=== PATIENT | male | born 1980 | race Caucasian/White ===

== ENCOUNTER 2020-10-07 10:21 | Emergency (ER) | payer BC, SELFPAY ==
[2020-10-07 10:48] VITALS: BP 144/98; PULSE 81; RESP 18; TEMP 36.7; O2SAT 96; BMI 28.8
--- NOTE | 2020-10-07 11:49 | CT_ITS ---
WS: [id number] CT ABDOMEN PELVIS TECHNIQUE: Noncontrast CT of the abdomen and pelvis with coronal and sagittal reformatted images. CLINICAL INFORMATION: L side/abdominal pain COMPARISON: None. DLP: 1152.[address] scans at [facility] use at least one of these dose optimization techniques: automat ed exposure control; mA and/or kV adjustment per patient size (includes targeted exams where dose is matched to clinical indication); or iterative reconstruction. FINDINGS: 3 mm obstructing left proximal ureteral calculus with slight left ureterectasis. Mild inflammatory st randing and edema about the left kidney with minimal left hydronephrosis. Tiny subcentimeter nonobstr ucting left calyceal tip calculi. No hydronephrosis in right kidney. Right ureter is decompressed. Both adrenal glands are normal. Lung bases are well aerated. Normal noncontrast liver and gallbladder. Normal GE junction. Noncontrast sp cal is normal. Noncontrast pancreas is normal. Prostate calcification. Bladder is decompressed. Normal sigmoid colon. No evidence of small or large bowel obstruction. Lung bases are well aerated. Fat-containing umbilical hernia. CT/CT kidney stone 32011 IMPRESSION: 1. Obstructing 3 mm left proximal ureteral calculus with minimal left hydronep hrosis. Inflammatory stranding and edema about the left kidney. 2. Right kidney is normal.
--- NOTE | 2020-10-07 11:50 | ED_ITS ---
HPI - Abdominal Pain General: Chief Complaint: Urogenital-Male Stated Complaint: Lower back/ ABD Pain, Vomiting Time Seen by Provider: 10/07/20 11:46 Source: patient Mode of arrival: ambulatory Limitations: no limitations History of Present Illness: HPI narrative: Patient is a nice 40-year-old male who presents to ED today with a complaint of left-sided abdominal and flank pain . Patient states 4 days ago he began noticing fairly acute onset left lower abdominal pain and states since then it has moved into his left lower back. He did notice yesterday very dark brown and cloudy urine. He states the pain is so intense that is caused him to feel nauseous and has had 2 episodes of non-bloody emesis today. No fevers. No history of nephro or ureterolithiasis. He is having normal bowel movements. MD elicited complaint: abdominal pain Pertinent past history: none Onset (ago): day(s) Pain Consistency: constant Location: LLQ and L flank Severity: severe Quality: stabbing and sharp Radiation: LLQ and L flank Exacerbating factors: nothing Relieving factors: nothing Associated Symptoms: Reports hematuria, nausea and vomiting (x 2); Denies change in stool character, chills, dysuria, fever(s) and hematemesis Review of Systems Const: Denies: fever(s), chills, body aches, fatigue or malaise Card: Denies: chest pain Resp: Denies: dyspnea GI: Reports: abdominal pain, nausea and vomiting (x 2); Denies: hematemesis or change in stool character : Reports: flank pain and hematuria; Denies: difficulty urinating, dysuria, urinary frequency, urinary urgency, urinary hesitancy or urinary dribbling Musc: Denies: neck pain, extremity pain or joint pain Skin/Breast: Denies: rash Neuro: Denies: headache(s) PFS ED PFSH: Social History Smoking and tobacco status: never smoked Physical Exam Const: COMMON NORMALS: no acute distress, average body habitus, patient oriented x3, no limitations, healthy appearing, alert and well nourished Resp: COMMON NORMALS: normal respiratory effort GI: COMMON NORMALS: Normal to inspection, nondistended, normoactive bowel sounds present, Soft to palpation, No hepatosplenomegaly present and no masses AUSCULTATION: Yes normoactive bowel sounds PALPATION: Yes Soft to palpation, Yes Tenderness to palpation present (GI) (L lower abdomen/pelvis) and Yes No hepatosplenomegaly present : BLADDER/KIDNEY EXAM: Yes CVA tenderness (below L CVA) Back/Pelvis: GENERAL BACK: Yes CVA tenderness (below L CVA) Extremity: COMMON NORMALS: no pedal edema Neuro: COMMON NORMALS: patient oriented x3 SENSORIUM/ORIENTATION: Yes alert Skin: COMMON NORMALS: no rashes or lesions noted GENERAL SKIN EXAM: no rashes or lesions noted Course Vital Signs: Vital signs: Vital Signs Temperature 98.0 F 10/07/20 12:00 Pulse Rate 70 10/07/20 12:00 Respiratory Rate 16 10/07/20 12:01 Blood Pressure 152/95 10/07/20 12:00 Pulse Oximetry 100 10/07/20 12:00 MDM - Abdominal Pain MDM Narrative: Medical decision making narrative: Pain controlled here. No infection. Patient has 3mm L ureter stone. Will DC with urine strainer, pain/nausea meds and flomax and have him follow up with urology. Lab Data: Attestation: I reviewed the patient's lab results. Labs: Lab Results 10/07/20 10/07/20 10/07/20 Range/Units 11:56 11:56 12:10 WBC 8.2 (4.0-10.0) 10^3/ uL RBC 4.95 (4.1-5.3) 10^6/u L Hgb 14.9 (11.7-16.6) g/dL Hct 44.6 (42.0-52.0) % MCV 90.1 (80-94) fL MCH 30.1 (28.0-34.0) pg MCHC 33.4 (30.0-36.0) g/dL RDW 11.8 L (12.1-15.1) % Plt Count 303 (130-400) 10^3/c mm MPV 9.9 (7.4-10.4) fL Neut % (Auto) 73.5 % Lymph % (Auto) 17.0 % [place] % (Auto) 8.2 % Eos % (Auto) 0.6 % Baso % (Auto) 0.5 % Neut # (Auto) 6.03 (1.8-7.7) 10^3/u L Lymph # (Auto) 1.4 (0.8-4.8) 10^3/u L [place] # (Auto) 0.7 (0.2-0.9) 10^3/u L Eos # (Auto) 0.1 (0.0-0.8) 10^3/u L Baso # (Auto) 0.0 (0.0-0.1) 10^3/u L Nucleated RBC % (a uto) 0 % Nucleated RBCs # 0.0 /100WBC Sodium 138 (136-145) mmol/L Potassium 4.4 (3.5-5.1) mmol/L Chloride 103 (98-107) mmol/L Carbon Dioxide 28 (22-29) mmol/L Anion Gap 11.4 (5-19) BUN 15 (6-20) mg/dL Creatinine 0.7 (0.7-1.2) mg/dL GFR Calculation 125.5 (90-130) mL/min Glucose 103 (65-115) mg/dL Calculated Osmolal ity 287 (285-295) mOsm/k g Calcium 8.8 (8.5-10.5) mg/dL Total Bilirubin 0.3 (0.15-1.2) mg/dL AST 17 (0-40) U/L ALT 14 (0-41) U/L Alkaline Phosphata se 72 (40-130) IU/L Total Protein 7.2 (6.6-8.7) g/dL Albumin 4.7 (3.5-5.2) g/dL Globulin 2.5 (1.3-4.6) g/dL Urine Color Yellow (Yellow) Urine Appearance Sl hazy (CLEAR) Urine pH 5 (5-7) Ur Specific Gravit y 1.015 (1.005-1.030) Urine Protein Neg (Negative) Urine Glucose (UA) Norm (Normal) Urine Ketones Negative (Negative) Urine Blood 3+ H (Negative) Urine Nitrate Negative (Negative) Urine Bilirubin Neg (Negative) Urine Urobilinogen Neg (Negative) mg/dL Ur Leukocyte Marisela ase Negative (Negative) Urine RBC 10-15 H (0-2) /hpf Urine WBC None (0-5) /hpf Ur Squamous Epith Cells None (0-5) /hpf Amorphous Sediment Not Reportable Urine Bacteria None (NONE) /hpf Urine Mucus 1+ /hpf Imaging Data ^: CT Abd/Pel: Radiologist's impression: [address] [place] [address] CT Scan Report Signed Patient: Fabio Monteiro Unit #: [id number] : 1980 Age/Sex: 40 / M ADM Date: 10/07/20 Loc: ER Room/Bed: Attending Dr: Ordering Provider/Ordering MD: Manju Cast Date of Service: 10/07/20 Procedure(s): CT kidney stone 68428 Accession Number(s): [id number] Report Number: [id number] WS: [id number] CT ABDOMEN PELVIS TECHNIQUE: Noncontrast CT of the abdomen and pelvis with coronal and sagittal reformatted images. CLINICAL INFORMATION: L side/abdominal pain COMPARISON: None. DLP: 1152.[address] scans at [facility] use at least one of these dose optimization techniques: automated exposure control; mA and/or kV adjustment per patient size (includes targeted exams where dose is matched to clinical indication); or iterative reconstruction. FINDINGS: 3 mm obstructing left proximal ureteral calculus with slight left ureterectasis. Mild inflammatory stranding and edema about the left kidney with minimal left hydronephrosis. Tiny subcentimeter nonobstructing left calyceal tip calculi. No hydronephrosis in right kidney. Right ureter is decompressed. Both adrenal glands are normal. Lung bases are well aerated. Normal noncontrast liver and gallbladder. Normal GE junction. Noncontrast spleen is normal. Noncontrast pancreas is normal. Prostate calcification. Bladder is decompressed. Normal sigmoid colon. No evide nce of small or large bowel obstruction. Lung bases are well aerated. Fat-containing umbilical hernia. CT/CT kidney stone [id number] IMPRESSION: 1. Obstructing 3 mm left proximal ureteral calculus with minimal left hydronephrosis. Inflammatory stranding and edema about the left kidney. 2. Right kidney is normal. Dictated By: Ousmane Rivera MD Signed By: Ousmane Rivera MD Signed Date/Time: 10/07/20 1242 DD/ 1237 Discharge Plan Discharge Patient Disposition: Home Clinical Impression: Left ureteral calculus Condition: Stable Prescriptions: New hydrocodone-acetaminophen 5-325 mg tablet 1 tab PO Q6H PRN (Reason: pain) Qty: 14 RF: 0 Zofran 4 mg tablet 4 mg PO Q6H PRN (Reason: nausea and vomiting) Qty: 14 RF: 0 Flomax 0.4 mg capsule 0.4 mg PO DAILY Qty: 10 RF: 0 No Action penicillin V potassium 500 mg tablet 500 mg PO Q12H Qty: 20 RF: 0 Discharge Orders: Discharge ED (Routine); Ordered 10/07/20 Ordered By: Manju Cast Referrals: Az Ching MD [Physician] - Patient Instructions: Kidney Stones (ED), How to Strain Your Urine (ED), Opioid Safety Activity Restrictions/Additional Instructions: [facility] is committed to fighting the nationwide opiate epidemic. We are providing ALL patients with information regarding opiate safety. If you received opiate pain medication during your stay or if you received a prescription for opiate pain medication-please review this handout. If not, you may disregard. Thank you. As we discussed case management should contact you to set you up with a follow- up appointment with urology/Dr. Ching's office. Strain your urine as we discussed and bring stone with you if you pass it. You need to return to the emergency department for severe or uncontrollable pain, inability to urinate, fevers greater than 100.4, repetitive episodes of vomiting, or any other concerns you may have. I hope you begin to feel better soon. Coding Level of Care Code ED Bacteriology Research Assistant for Phil Fwd Exam Detailed
[2020-10-07 11:51] VITALS: BP 135/73; PULSE 78; RESP 16; TEMP 36.7; O2SAT 96
[2020-10-07 12:00] VITALS: BP 152/95; PULSE 70; RESP 16; TEMP 36.7; O2SAT 100
[2020-10-07 12:01] VITALS: RESP 16
[2020-10-07] MEDS: morphine 4 mg/mL SDV 1 mL IVP (12:01)
[2020-10-07] MEDS: ondansetron 2 mg/ML SDV 2 mL 4 MG IVP (12:02)
[2020-10-07] MEDS: sodium chloride 0.9% 1,000 ML 999 ML IV (12:02)
[2020-10-07 12:03] LABS: Basophils % 0.5 %; Eosinophils # 0.1 10^3/uL (0.0-0.8); Eosinophils % 0.6 %; Hematocrit 44.6 % (42.0-52.0); Hemoglobin 14.9 g/dL (11.7-16.6); Lymphocytes # 1.4 10^3/uL (0.8-4.8); Mean Corpuscular HGB Conc 33.4 g/dL (30.0-36.0); Mean Corpuscular Hemoglobin 30.1 pg (28.0-34.0); Mean Corpuscular Volume 90.1 fL (80-94); Mean Platelet Volume 9.9 fL (7.4-10.4); Monocytes # 0.7 10^3/uL (0.2-0.9); Monocytes % 8.2 %; Neutrophils # 6.03 10^3/uL (1.8-7.7); Neutrophils % 73.5 %; Nucleated Red Blood Cells % 0 %; Platelet Count 303 10^3/cmm (130-400); Red Blood Count 4.95 10^6/uL (4.1-5.3); Red Cell Distribution Width 11.8 % (12.1-15.1); White Blood Count 8.2 10^3/uL (4.0-10.0)
[2020-10-07 12:25] LABS: Add Urine Culture? No; Add Urine Microscopic? YES; Bilirubin Urine Neg (Negative); Blood Urine 3+ (Negative); Glucose Urine UA Norm (Normal); Ketones Urine Negative (Negative); Leukocyte Esterase Urine Negative (Negative); Mucus Urine 1+ /hpf; Nitrate Urine Negative (Negative); Protein Urine Neg (Negative); Specific Gravity, Urine 1.015 (1.005-1.030); Urine Appearance SL Hazy (CLEAR); Urine Color Yellow (Yellow); Urobilinogen Urine Neg (Negative); pH Urine 5 (5-7)
[2020-10-07 12:29] LABS: Alanine Aminotransferase 14 U/L (0-41); Albumin Level 4.7 g/dL (3.5-5.2); Alkaline Phosphatase 72 IU/L (40-130); Anion Gap 11.4 (5-19); Aspartate Amino Transferase 17 U/L (0-40); Blood Urea Nitrogen 15 mg/dL (6-20); Calcium 8.8 mg/dL (8.5-10.5); Carbon Dioxide 28 mmol/L (22-29); Chloride 103 mmol/L (98-107); Creatinine Clr Calc Pharmacy 151.3261; Globulin 2.5 g/dL (1.3-4.6); Glomerular Filtration Rate 125.5 mL/min (90-130); Glucose 103 mg/dL (65-115); Osmolality Calculated 287 mOsm/kg (285-295); Potassium 4.4 mmol/L (3.5-5.1); Sodium 138 mmol/L (136-145); Total Bilirubin 0.3 mg/dL (0.15-1.2); Total Protein 7.2 g/dL (6.6-8.7)
[2020-10-07 12:30] VITALS: BP 142/102; PULSE 73; RESP 16; TEMP 36.7; O2SAT 100
[2020-10-07] MEDS: ketorolac 30 mg/mL INJ IVP (13:15)
[2020-10-07 13:23] VITALS: BP 149/100; PULSE 77; RESP 16; O2SAT 100
--- NOTE | 2020-10-07 15:15 | DCPLANNER ---
logistics account manager had message to schedule a follow up appointment for patient with Dr. Ching. logistics account manager called the office of Dr. Ching, spoke with Jesus, gave clinic patients information. logistics account manager was told that patients information would be printed and reviewed. Clinic will call patient with appointment information.
--- NOTE | 2020-10-08 13:17 | DCPLANNER ---
Patient had a follow up appointment scheduled for 10.08.[address] Ching - patient did attend appointment.
== END 2020-10-07 13:25 | disposition home or self-care (01) ==
PROVIDERS: Emergency Provider Physician Assistant
DX: N20.1 Calculus of ureter (principal)
CPT/HCPCS: 74176; 80053; 81001; 85025; 96361; 96374; 96375; 99284; J1885; J2270; J2405; J7030

== ENCOUNTER 2020-10-08 09:04 | Outpatient (CLI) | payer BC, SELFPAY ==
--- NOTE | 2020-10-08 09:11 | XR_ITS ---
WS: [id number] KUB, AP view, 10/08/2020 Clinical Data: URETERAL CALCULUS Comparison: CT abdomen and pelvis, 10/07/2020 Findings: No abnormal intraabdominal masses or calcifications are seen. There is no dilatated small bowel or ev idence of obstruction. No definite ureteral calculi are seen. Fecal material and colon gas obscure detail over the right ki dney. XR/XR KUB [id number] Impression: Negative KUB.
== END 2020-10-08 09:05 | disposition home or self-care (01) ==
PROVIDERS: Visit Provider Urology
DX: N20.1 Calculus of ureter (principal)
CPT/HCPCS: 74018; 81003

== ENCOUNTER 2020-10-12 00:59 | Emergency (ER) | payer BC, SELFPAY ==
[2020-10-12] VITALS (11 sets, daily range): BP systolic 152–212; BP diastolic 96–119; PULSE 73–92; RESP 16–20; TEMP 36; O2SAT 92–100; BMI 28.8
--- NOTE | 2020-10-12 01:36 | CTR_ITS ---
PROCEDURE INFORMATION: Exam: CT Abdomen And Pelvis Without Contrast Exam date and time: 10/12/2020 1:36 AM Age: 40 years old Clinical indication: Abdominal pain; Flank; Left; Prior surgery; Surgery type: Hernia; Additional info: Flank pain, HX left ureteral stone TECHNIQUE: Imaging protocol: Computed tomography of the abdomen and pelvis without contrast. Radiation optimization: All CT scans at this facility use at least one of these dose optimization techniques: automated exposure control; mA and/or kV adjustment per patient size (includes targeted exams where dose is matched to clinical indication); or iterative reconstruction. COMPARISON: CR XR KUB [id number] 10/08/2020 9:19 AM RADIATION DOSE METRICS: Total DLP (mGy-cm): 950.48 FINDINGS: Liver: Normal. No mass. Gallbladder and bile ducts: Normal. No calcified stones. No ductal dilation. Pancreas: Normal. No ductal dilation. Spleen: Normal. No splenomegaly. Adrenal glands: Normal. No mass. Kidneys and ureters: There is a 3 mm stone at the left UVJ causing moderate hydroureteronephrosis. Fluid around the kidney may be due to a ruptured calyx. Nonobstructing calculi in the left kidney. Stomach and bowel: Unremarkable. No obstruction. No mucosal thickening. Appendix: No evidence of appendicitis. Intraperitoneal space: Unremarkable. No free air. No significant fluid collection. Vasculature: Unremarkable. No abdominal aortic aneurysm. Lymph nodes: Unremarkable. No enlarged lymph nodes. Urinary bladder: There is diffuse bladder wall thickening with surrounding inflammatory stranding consistent with cystitis. Reproductive: Prostate is enlarged, measuring 4.4 x 3.8 cm. Bones/joints: Unremarkable. No acute fracture. Soft tissues: Unremarkable. CT/CT kidney stone [id number] IMPRESSION: Left UVJ stone with hydroureteronephrosis and possible ruptured calyx. Nonobstructing left renal was. Probable cystitis versus bladder outflow obstruction. Correlate clinically Prostatomegaly. Radiation Dose CTDIVOL = (mGy): DLP = 950.48 (mGy-cm)
[2020-10-12 02:00] LABS: Basophils # 0.1 10^3/uL (0.0-0.1); Basophils % 0.3 %; Eosinophils % 0.1 %; Hematocrit 42.6 % (42.0-52.0); Hemoglobin 14.4 g/dL (11.7-16.6); Lymphocytes % 5.6 %; Mean Corpuscular HGB Conc 33.8 g/dL (30.0-36.0); Mean Corpuscular Hemoglobin 30.2 pg (28.0-34.0); Mean Corpuscular Volume 89.3 fL (80-94); Mean Platelet Volume 9.9 fL (7.4-10.4); Monocytes # 1.3 10^3/uL (0.2-0.9); Neutrophils # 15.84 10^3/uL (1.8-7.7); Neutrophils % 86.6 %; Nucleated Red Blood Cells % 0 %; Platelet Count 310 10^3/cmm (130-400); Red Blood Count 4.77 10^6/uL (4.1-5.3); Red Cell Distribution Width 11.7 % (12.1-15.1); White Blood Count 18.3 10^3/uL (4.0-10.0)
[2020-10-12] MEDS: sodium chloride 0.9% 1,000 ML 999 ML IV (02:18)
[2020-10-12] MEDS: ondansetron 2 mg/ML SDV 2 mL 4 MG IVP (02:19)
[2020-10-12] MEDS: HYDROmorphone 1 mg/mL INJ 1 mL IVP ×2 (02:19→03:18)
--- NOTE | 2020-10-12 02:22 | W.ED.BACK ---
HPI - Back Pain/Injury General: Chief Complaint: Back Pain/Injury Stated Complaint: Kidney Pain Time Seen by Provider: 10/12/20 02:06 Source: patient Mode of arrival: ambulatory Limitations: no limitations History of Present Illness: HPI Narrative: 40-year-old male who was diagnosed with a kidney stone last week. He states that he passed the stone but states that starting roughly 4 hours today started having severe flank pain again. He states his pain was a 9 out of 10 currently and has had vomiting as well. He states he has got lower abdominal pain as well. He states he is felt feverish with no fever checked. He denies any worsening improving factors. Associated symptoms: Reports abdominal pain, nausea and vomiting; Deny chills, dysuria or fever(s) Review of Systems Const: Denies: fever(s), chills, body aches or change in appetite Eyes: Denies: blurry vision or eye discomfort ENMT: Denies: throat pain or dental pain Card: Denies: chest pain Resp: Denies: dyspnea GI: Reports: abdominal pain, nausea and vomiting; Denies: diarrhea : Reports: flank pain and difficulty urinating; Denies: dysuria Musc: Denies: neck pain or back pain Skin/Breast: Denies: rash Neuro: Denies: headache(s) Psych: Denies: depression Kb/Lymph: Denies: easy bruising All/Imm: Denies: urticaria PFSH ED PFSH: Family History Mother Kidney stone Gout Father , AT AGE 66 Cancer MULTIPLE MYLOMA Social History Smoking and tobacco status: former smoker Alcohol intake: never Marital status: Current occupational status: employed History of recent travel: No Physical Exam Const: COMMON NORMALS: patient oriented x3 and healthy appearing GENERAL APPEARANCE: in distress HENMT: COMMON NORMALS: normocephalic and atraumatic HEAD & SCALP: normocephalic and atraumatic Eye: COMMON NORMALS: Equal, round and reactive pupils present and EOMs intact bilaterally PUPIL: Yes Equal, round and reactive pupils present Neck/C-Spine: COMMON NORMALS: full ROM and supple Chest: COMMONS NORMALS: normal inspection of the chest and normal palpation of entire chest wall Resp: COMMON NORMALS: normal respiratory effort, No retractions, No use of accessory muscles and clear to auscultation bilaterally AUSCULTATION: clear to auscultation bilaterally Cardio: COMMON NORMALS: regular rate, regular rhythm and No murmurs present (Cardio) RATE: regular rate RHYTHM: regular rhythm GI: COMMON NORMALS: Normal to inspection, nondistended, normoactive bowel sounds present, Soft to palpation, non-tender and no masses PALPATION: Yes Soft to palpation Extremity: COMMON NORMALS: normal to inspection and full ROM Neuro: COMMON NORMALS: patient oriented x3, moves all extremities and no focal motor deficits Psych: COMMON NORMALS: mental status grossly normal, Normal thought process present and cooperative THOUGHT PROCESS: Normal thought process present Skin: COMMON NORMALS: no rashes or lesions noted and no wounds GENERAL SKIN EXAM: no rashes or lesions noted Course Vital Signs: Vital signs: Vital Signs Temperature 96.8 F L 10/12/20 01:06 Pulse Rate 82 10/12/20 04:37 Respiratory Rate 18 10/12/20 04:37 Blood Pressure 153/96 10/12/20 04:37 Pulse Oximetry 96 10/12/20 04:37 MDM - Back Pain/Injury MDM Narrative: Medical decision making narrative: Patient presents here with kidney stone. I spoke to Dr. Ching and spoke to patient and recommend him to be admitted for stent placement. He states his pain has resolved and he would like to try to pass the stone at home. Informed him of the CT findings spoke to Dr. Ching he is to follow-up with Dr. Turner on Wednesday. Patient prescribed pain meds for home. He is return to ER if his pain worsens. He understands and agrees to the plan. Lab Data: Labs: Lab Results 10/12/20 10/12/20 10/12/20 Range/Units 01:55 01:55 01:55 WBC 18.3 H (4.0-10.0) 10^3/ uL RBC 4.77 (4.1-5.3) 10^6/u L Hgb 14.4 (11.7-16.6) g/dL Hct 42.6 (42.0-52.0) % MCV 89.3 (80-94) fL MCH 30.2 (28.0-34.0) pg MCHC 33.8 (30.0-36.0) g/dL RDW 11.7 L (12.1-15.1) % Plt Count 310 (130-400) 10^3/c mm MPV 9.9 (7.4-10.4) fL Neut % (Auto) 86.6 % Lymph % (Auto) 5.6 % [place] % (Auto) 7.0 % Eos % (Auto) 0.1 % Baso % (Auto) 0.3 % Neut # (Auto) 15.84 H (1.8-7.7) 10^3/u L Lymph # (Auto) 1.0 (0.8-4.8) 10^3/u L [place] # (Auto) 1.3 H (0.2-0.9) 10^3/u L Eos # (Auto) 0.0 (0.0-0.8) 10^3/u L Baso # (Auto) 0.1 (0.0-0.1) 10^3/u L Nucleated RBC % (a uto) 0 % Nucleated RBCs # 0.0 /100WBC Sodium 139 (136-145) mmol/L Potassium 3.9 (3.5-5.1) mmol/L Chloride 102 (98-107) mmol/L Carbon Dioxide 26 (22-29) mmol/L Anion Gap 14.9 (5-19) BUN 21 H (6-20) mg/dL Creatinine 1.2 (0.7-1.2) mg/dL GFR Calculation 67.4 L (90-130) mL/min Glucose 154 H (65-115) mg/dL Calculated Osmolal ity 294 (285-295) mOsm/k g Lactic Acid 1.4 (0.5-2.2) mmol/L Calcium 9.0 (8.5-10.5) mg/dL Urine Color (Yellow) Urine Appearance (CLEAR) Urine pH (5-7) Ur Specific Gravit y (1.005-1.030) Urine Protein (Negative) Urine Glucose (UA) (Normal) Urine Ketones (Negative) Urine Blood (Negative) Urine Nitrate (Negative) Urine Bilirubin (Negative) Urine Urobilinogen (Negative) mg/dL Ur Leukocyte Marisela ase (Negative) Urine RBC (0-2) /hpf Urine WBC (0-5) /hpf Ur Squamous Epith Cells (0-5) /hpf Amorphous Sediment Urine Bacteria (NONE) /hpf Urine Mucus /hpf 10/12/20 Range/Units 02:37 WBC (4.0-10.0) 10^3/ uL RBC (4.1-5.3) 10^6/u L Hgb (11.7-16.6) g/dL Hct (42.0-52.0) % MCV (80-94) fL MCH (28.0-34.0) pg MCHC (30.0-36.0) g/dL RDW (12.1-15.1) % Plt Count (130-400) 10^3/c mm MPV (7.4-10.4) fL Neut % (Auto) % Lymph % (Auto) % [place] % (Auto) % Eos % (Auto) % Baso % (Auto) % Neut # (Auto) (1.8-7.7) 10^3/u L Lymph # (Auto) (0.8-4.8) 10^3/u L [place] # (Auto) (0.2-0.9) 10^3/u L Eos # (Auto) (0.0-0.8) 10^3/u L Baso # (Auto) (0.0-0.1) 10^3/u L Nucleated RBC % (a uto) % Nucleated RBCs # /100WBC Sodium (136-145) mmol/L Potassium (3.5-5.1) mmol/L Chloride (98-107) mmol/L Carbon Dioxide (22-29) mmol/L Anion Gap (5-19) BUN (6-20) mg/dL Creatinine (0.7-1.2) mg/dL GFR Calculation (90-130) mL/min Glucose (65-115) mg/dL Calculated Osmolal ity (285-295) mOsm/k g Lactic Acid (0.5-2.2) mmol/L Calcium (8.5-10.5) mg/dL Urine Color Yellow (Yellow) Urine Appearance Clear (CLEAR) Urine pH 5 (5-7) Ur Specific Gravit y 1.020 (1.005-1.030) Urine Protein Neg (Negative) Urine Glucose (UA) Trace H (Normal) Urine Ketones 2+ H (Negative) Urine Blood 2+ H (Negative) Urine Nitrate Negative (Negative) Urine Bilirubin Neg (Negative) Urine Urobilinogen Norm (Negative) mg/dL Ur Leukocyte Marisela ase Negative (Negative) Urine RBC 5-10 H (0-2) /hpf Urine WBC 0-4 H (0-5) /hpf Ur Squamous Epith Cells 0-4 H (0-5) /hpf Amorphous Sediment Not Reportable Urine Bacteria Trace (NONE) /hpf Urine Mucus Trace /hpf Imaging Data^: CT Abd/Pel: Attestation: I personally reviewed and interpreted this imaging study as follows: Radiologist's impression: [facility] [address] [address] [address] Scan Report Signed Patient: Fabio Monteiro Unit #: [id number] : 1980 Age/Sex: 40 / M ADM Date: 10/12/20 Loc: ER Room/Bed: Attending Dr: Ordering Provider/Ordering MD: Sandip Zaragoza NP Date of Service: 10/12/20 Procedure(s): CT kidney stone 19661 Accession Number(s): [id number] Report Number: [id number] PROCEDURE INFORMATION: Exam: CT Abdomen And Pelvis Without Contrast Exam date and time: 10/12/2020 1:36 AM Age: 40 years old Clinical indication: Abdominal pain; Flank; Left; Prior surgery; Surgery type: Hernia; Additional info: Flank pain, HX left ureteral stone TECHNIQUE: Imaging protocol: Computed tomography of the abdomen and pelvis without contrast. Radiation optimization: All CT scans at this facility use at least one of these dose optimization techniques: automated exposure control; mA and/or kV adjustment per patient size (includes targeted exams where dose is matched to clinical indication); or iterative reconstruction. COMPARISON: CR XR KUB [id number] 10/08/2020 9:19 AM RADIATION DOSE METRICS: Total DLP (mGy-cm): 950.48 FINDINGS: Liver: Normal. No mass. Gallbladder and bile ducts: Normal. No calcified stones. No ductal dilation. Pancreas: Normal. No ductal dilation. Spleen: Normal. No splenomegaly. Adrenal glands: Normal. No mass. Kidneys and ureters: There is a 3 mm stone at the left UVJ causing moderate hydroureteronephrosis. Fluid around the kidney may be due to a ruptured calyx. Nonobstructing calculi in the left kidney. Stomach and bowel: Unremarkable. No obstruction. No mucosal thickening. Appendix: No evidence of appendicitis. Intraperitoneal space: Unremarkable. No free air. No significant fluid collection. Vasculature: Unremarkable. No abdominal aortic aneurysm. Lymph nodes: Unremarkable. No enlarged lymph nodes. Urinary bladder: There is diffuse bladder wall thickening with surrounding inflammatory stranding consistent with cystitis. Reproductive: Prostate is enlarged, measuring 4.4 x 3.8 cm. Bones/joints: Unremarkable. No acute fracture. Soft tissues: Unremarkable. CT/CT kidney stone [id number] IMPRESSION: Left UVJ stone with hydroureteronephrosis and possible ruptured calyx. Nonobstructing left renal was. Probable cystitis versus bladder outflow obstruction. Correlate clinically Prostatomegaly. Radiation Dose CTDIVOL = (mGy): DLP = 950.48 (mGy-cm) Dictated By: Antwan Palencia MD Signed By: Antwan Palencia MD Signed Date/Time: 10/12/20421 DD/ 0 Discharge Plan Discharge Patient Disposition: Home Clinical Impression: Left ureteral calculus Condition: Stable Prescriptions: New ondansetron 4 mg tablet,disintegrating 4 mg PO Q6H PRN (Reason: nausea and vomiting) Qty: 14 RF: 0 Percocet 5-325 mg tablet 1 tab PO Q8H PRN (Reason: pain) Qty: 10 RF: 0 No Action Excedrin Migraine 250-250-65 mg tablet 1 tab PO Q6H PRNRF: 0 acetaminophen [Tylenol] 325 mg capsule 325 mg PO QID PRNRF: 0 ibuprofen 200 mg tablet 400 mg PO Q6H PRNRF: 0 hydrocodone-acetaminophen 5-325 mg tablet 1 - 2 tab PO Q6H PRN (Reason: Left renal colic) 5 Days Qty: 24 RF: 0 Zofran 4 mg tablet 4 mg PO Q6H PRN (Reason: nausea and vomiting) Qty: 14 RF: 0 Flomax 0.4 mg capsule 0.4 mg PO DAILY Qty: 10 RF: 0 Discharge Orders: Discharge ED (Routine); Ordered 10/12/20 Ordered By: Gem Laurent Referrals: Az Ching MD [Physician] - 1-3 days Discharge Diet: Advance as tolerated Discharge Activity: Resume usual activity Patient Instructions: Kidney Stones (ED), Opioid Safety Coding Level of Care Code ED Tape Controlled Machine Stitcher for Phil Fwd Exam Comprehensive
[2020-10-12 02:23] LABS: Anion Gap 14.9 (5-19); Blood Urea Nitrogen 21 mg/dL (6-20); Carbon Dioxide 26 mmol/L (22-29); Chloride 102 mmol/L (98-107); Glomerular Filtration Rate 67.4 mL/min (90-130); Glucose 154 mg/dL (65-115); Lactic Sepsis W/Reflex 1.4 mmol/L (0.5-2.2); Osmolality Calculated 294 mOsm/kg (285-295); Potassium 3.9 mmol/L (3.5-5.1); Sodium 139 mmol/L (136-145)
[2020-10-12 02:52] LABS: Add Urine Microscopic? YES; Bilirubin Urine Neg (Negative); Blood Urine 2+ (Negative); Glucose Urine UA Trace (Normal); Ketones Urine 2+ (Negative); Leukocyte Esterase Urine Negative (Negative); Nitrate Urine Negative (Negative); Protein Urine Neg (Negative); Urine Appearance Clear (CLEAR); Urine Color Yellow (Yellow); Urobilinogen Urine Norm (Negative); pH Urine 5 (5-7)
[2020-10-12 02:54] LABS: Add Urine Culture? No; Bacteria Urine TRACE /hpf; Mucus Urine TRACE /hpf; Squamous Epithelial Cell Urine 0-4 /hpf (0-5); WBC Urine 0-4 /hpf (0-5)
[2020-10-12] MEDS: HYDROmorphone 1 mg/mL INJ 1 mL 2 MG IVP (03:41)
== END 2020-10-12 04:48 | disposition home or self-care (01) ==
PROVIDERS: Nurse Practitioner Family; Emergency Provider Emergency Medicine
DX: N20.1 Calculus of ureter (principal); Z87.891 Personal history of nicotine dependence
CPT/HCPCS: 36415; 74176; 80048; 81001; 83605; 85025; 96361; 96374; 96375; 96376; 99284; J1170; J2405; J7030

== ENCOUNTER 2020-10-22 08:59 | Outpatient (CLI) | payer SELFPAY ==
--- NOTE | 2020-10-22 09:00 | XRR_ITS ---
PROCEDURE INFORMATION: Exam: XR Abdomen Exam date and time: 10/22/2020 9:00 AM Age: 40 years old Clinical indication: Condition or disease; Other: Stones; Prior surgery; Surgery type: Inguinal hernia; Additional info: Stones, kub ozh 10/22/20 @ 9:00 am appt to follow TECHNIQUE: Imaging protocol: XR of the abdomen. Views: Frontal supine view of the abdomen. 1 View. Total images: 2 COMPARISON: CT kidney stone [id number] 10/12/2020 2:50 AM FINDINGS: Gastrointestinal tract: A paucity of bowel gas is noted with loops that are visualized appearing nondistended and nonobstructive. Organs: 2 mm calcification in the left mid kidney area felt to represent a small renal calculus. No additional renal, ureteral, nor bladder calculi. Bones/joints: Unremarkable. XR/XR KUB [id number] IMPRESSION: 1. A paucity of bowel gas is noted with loops that are visualized appearing nondistended and nonobstructive. 2. 2 mm calcification in the left mid kidney area felt to represent a small renal calculus. No additional renal, ureteral, nor bladder calculi.
== END 2020-10-22 09:00 | disposition home or self-care (01) ==
PROVIDERS: Visit Provider Urology
DX: N20.0 Calculus of kidney (principal)
CPT/HCPCS: 74018; 81003

== ENCOUNTER 2020-11-06 06:56 | Outpatient (CLI) | payer SELFPAY ==
--- NOTE | 2020-11-06 07:00 | XR_ITS ---
WS: [id number] KUB, 11/06/2020 Clinical Data: ureteral calculus Comparison: KUB, 10/22/2020. Findings: No abnormal intraabdominal masses are seen. There is no dilatated small bowel or evidence of obstruc tion. There is a questionable small calculus in the midportion of the left kidney unchanged. There is fecal material in the viktoriya ascending colon and rectum obscuring detail. XR/XR KUB [id number] Impression: Possible small left renal calculus.
== END 2020-11-06 06:57 | disposition home or self-care (01) ==
PROVIDERS: Visit Provider Urology
DX: N20.1 Calculus of ureter (principal); N20.0 Calculus of kidney
CPT/HCPCS: 74018; 81003; 82365; 88300

== ENCOUNTER → 2021-10-03 14:48 | Outpatient (BNVA) | payer SELFPAY | PROVIDERS: Visit Provider Emergency Medicine | DX: M79.641 Pain in right hand (principal); Z87.81 Personal history of (healed) traumatic fracture | CPT/HCPCS: 73130 ==

== ENCOUNTER 2022-10-20 12:11 | Inpatient (IN) | payer SELFPAY ==
[2022-10-20 12:18] VITALS: BP 152/99; PULSE 86; RESP 16; TEMP 36.8; O2SAT 100
--- NOTE | 2022-10-20 12:34 | W.ED.PSYCHS ---
Documented by User: KRISTY Gross 10/20/22 13:35 HPI - Psych General: Chief Complaint: Psychiatric Symptoms Stated Complaint: si Time Seen by Provider: 10/20/22 12:16 Source: patient Mode of arrival: ambulatory Limitations: no limitations History of Present Illness: Patient is a 42-year-old male who presents to ED today stating he is acutely suicidal. Patient is adamant that he will attempt suicide and there is nobody that can stop it stating my time is up and I will do it . He reports he attempted suicide 2 days ago by hanging. He states he has a current plan to blow his head off in his truck stating that he hopes his ex-girlfriend finds his blood splatter in the truck. He states the depression and suicidal ideations seem to stem from their relationship 2 years ago. He states he is currently in the process of losing his house and his truck. Patient denies hallucinations. Denies homicidal ideations. Denies drug or alcohol use apart from occasional cannabis use. MD complaint: suicidal ideation and feels depressed Onset (ago): day(s) Duration: constant History of same: Yes Relieving factors: none Exacerbating factors: none Context: significant life stressor Associated psychiatric symptoms: depression and suicidal ideation Associated symptoms: Reports depression and suicidal ideation; Deny auditory hallucinations, visual hallucinations or homicidal ideation Treatments prior to arrival: none If self harm: admits thoughts of self harm, has plan and has acted on plan Review of Systems Const: Denies: fever(s) or chills Card: Denies: chest pain, palpitations, lightheadedness or syncope Resp: Denies: dyspnea GI: Denies: abdominal pain, nausea, vomiting or diarrhea Skin/Breast: Denies: rash Neuro: Denies: headache(s) Psych: Reports: depression, hopelessness and suicidal ideation; Denies: paranoia, visual hallucinations, auditory hallucinations or homicidal ideation PFS ED PFSH: Family History Mother Kidney stone Gout Father , AT AGE 66 Cancer MULTIPLE MYLOMA Social History Smoking and tobacco status: former smoker Alcohol intake: never Substance/Drug Use: current Marital status: Current occupational status: employed Physical Exam Const: COMMON NORMALS: no acute distress, average body habitus, patient oriented x3, no limitations, healthy appearing, alert and well nourished GENERAL APPEARANCE: cooperative and well kempt Neck/C-Spine: COMMON NORMALS: full ROM GENERAL: Yes normal visual inspection OTHER: no ligature amos noted Resp: COMMON NORMALS: normal respiratory effort and clear to auscultation bilaterally AUSCULTATION: clear to auscultation bilaterally Cardio: COMMON NORMALS: regular rate and regular rhythm RATE: regular rate RHYTHM: regular rhythm Neuro: COMMON NORMALS: patient oriented x3 SENSORIUM/ORIENTATION: Yes alert Psych: COMMON NORMALS: mental status grossly normal, Normal thought process present, cooperative, speech normal, activity/motor behavior normal, denies hallucinations and denies homicidal ideation APPEARANCE: Yes grossly normal and Yes well kempt ATTITUDE: Yes calm ACTIVITY/MOTOR BEHAVIOR: Yes appropriate eye contact and No psychomotor agitation SPEECH: Yes normal speech MOOD & AFFECT: Yes hostile affect THOUGHT PROCESS: Normal thought process present ATTENTION/CONCENTRATION: Yes attention grossly intact and Yes concentration grossly intact MEMORY/COGNITION: Yes memory grossly intact and Yes cognition grossly intact INSIGHT: Good insight present (Psych) JUDGEMENT: Good judgement present (Psych) Course ED course: Patient will be placed on a 96-hour hold. Vital Signs: Vital signs: Vital Signs Temperature 98.3 F 10/20/22 12:18 Pulse Rate 86 10/20/22 12:18 Respiratory Rate 16 10/20/22 12:18 Blood Pressure 152/99 10/20/22 12:18 Pulse Oximetry 100 10/20/22 12:18 Oxygen Delivery Me thod Room Air 10/20/22 12:18 [facility] - Psych Medical Decision Making Patient will be an admit to NPU to Dr. Rouse. He is on a 96-hour hold. Lab Data 10/20/22 12:32 10/20/22 12:32 Laboratory Results WBC 7.4 10^3/uL (4.0-10.0) 10/20/22 12:32 RBC 4.82 10^6/uL (4.1-5.3) 10/20/22 12:32 Hgb 14.8 g/dL (11.7-16.6) 10/20/22 12:32 Hct 48.0 % (42.0-52.0) 10/20/22 12:32 MCV 99.6 fl (80-94) H 10/20/22 12:32 MCH 30.7 pg (28.0-34.0) 10/20/22 12: MCHC 30.8 g/dL (30.0-36.0) 10/20/22 12:32 RDW 12.5 % (12.1-15.1) 10/20/22 12:32 Plt Count 235 10^3/cmm (130-400) 10/20/22 12:32 MPV 10.5 fL (7.4-10.4) H 10/20/22 12:32 Neut % (Auto) 72.9 % 10/20/22 12:32 Lymph % (Auto) 17.7 % 10/20/22 12:32 [place] % (Auto) 7.8 % 10/20/22 12:32 Eos % (Auto) 0.7 % 10/20/22 12:32 Baso % (Auto) 0.5 % 10/20/22 12:32 Neut # (Auto) 5.38 10^3/uL (1.8-7.7) 10/20/22 12:32 Lymph # (Auto) 1.3 10^3/uL (0.8-4.8) 10/20/22 12:32 [place] # (Auto) 0.6 10^3/uL (0.2-0.9) 10/20/22 12:32 Eos # (Auto) 0.1 10^3/uL (0.0-0.8) 10/20/22 12:32 Baso # (Auto) 0.0 10^3/uL (0.0-0.1) 10/20/22 12:32 Nucleated RBC % (auto) 0 % 10/20/22 12:32 Nucleated RBCs # 0.0 /100WBC 10/20/22 12:32 Sodium 143 mmol/L (136-145) 10/20/22 12:32 Potassium 4.1 mmol/L (3.5-5.1) 10/20/22 12:32 Chloride 105 mmol/L (98-107) 10/20/22 12:32 Carbon Dioxide 29 mmol/L (22-29) 10/20/22 12:32 Anion Gap 13.1 (5-19) 10/20/22 12:32 BUN 17 mg/dL (6-20) 10/20/22 12:32 Creatinine 0.7 mg/dL (0.7-1.2) 10/20/22 12:32 GFR Calculation 124.3 mL/min (90-130) 10/20/22 12:32 Glucose 120 mg/dL (65-115) H 10/20/22 12:32 Calculated Osmolality 299 mOsm/kg (285-295) H 10/20/22 12:32 Calcium 9.3 mg/dL (8.5-10.5) 10/20/22 12:32 Total Bilirubin 0.3 mg/dL (0.15-1.2) 10/20/22 12:32 AST 12 U/L (0-40) 10/20/22 12:32 ALT 11 U/L (0-41) 10/20/22 12:32 Alkaline Phosphatase 59 U/L (40-130) 10/20/22 12:32 Total Protein 6.8 g/dL (6.6-8.7) 10/20/22 12:32 Albumin 4.5 g/dL (3.5-5.2) 10/20/22 12:32 Globulin 2.3 g/dL (1.3-4.6) 10/20/22 12:32 Salicylates 2.9 mg/dL (3-10) L 10/20/22 12:32 Urine Opiates Screen Negative ng/mL (Negative) 10/20/22 12:52 Acetaminophen < 5.0 ug/mL (10-30) L 10/20/22 12:32 Ur Barbiturates Screen Negative ng/mL (Negative) 10/20/22 12:52 Ur Phencyclidine Scrn Negative ng/mL (Negative) 10/20/22 12:52 Ur Amphetamines Screen Negative ng/mL (Negative) 10/20/22 12:52 U Benzodiazepines Scrn Negative ng/mL (Negative) 10/20/22 12:52 Urine Cocaine Screen Negative ng/mL (Negative) 10/20/22 12:52 U Marijuana (THC) Screen Positive ng/mL (Negative) H 10/20/22 12:52 Ethyl Alcohol < 10 mg/dL (0-10) 10/20/22 12:32 Discharge Plan Discharge Patient Disposition: Admitted As Inpatient Admit Provider: Steven Rouse Clinical Impression: Suicidal ideation, Involuntary commitment Condition: Stable Coding Level of Care Code ED Baker Apprentice for Chg Fwd Documented by User: Gus Raza DO 10/20/22 15:15 HPI - Psych General: Chief Complaint: Psychiatric Symptoms Stated Complaint: si Time Seen by Provider: 10/20/22 12:16 PFSH ED PFSH: Family History Mother Kidney stone Gout Father , AT AGE 66 Cancer MULTIPLE MYLOMA Social History Smoking and tobacco status: former smoker Alcohol intake: never Substance/Drug Use: current Marital status: Current occupational status: employed Course Vital Signs: Vital signs: Vital Signs Temperature 98.3 F 10/20/22 12:18 Pulse Rate 86 10/20/22 12:18 Respiratory Rate 16 10/20/22 12:18 Blood Pressure 152/99 10/20/22 12:18 Pulse Oximetry 100 10/20/22 12:18 Oxygen Delivery Me thod Room Air 10/20/22 12:18 MDM - Psych Medical Decision Making Patient will be an admit to NPU to Dr. Rouse. He is on a 96-hour hold. Chart reviewed and patient discussed with midlevel. Agree with assessment and plan. Lab Data 10/20/22 12:32 10/20/22 12:32 Laboratory Results WBC 7.4 10^3/uL (4.0-10.0) 10/20/22 12:32 RBC 4.82 10^6/uL (4.1-5.3) 10/20/22 12:32 Hgb 14.8 g/dL (11.7-16.6) 10/20/22 12:32 Hct 48.0 % (42.0-52.0) 10/20/22 12:32 MCV 99.6 fl (80-94) H 10/20/22 12:32 MCH 30.7 pg (28.0-34.0) 10/20/22 12:32 MCHC 30.8 g/dL (30.0-36.0) 10/20/22 12:32 RDW 12.5 % (12.1-15.1) 10/20/22 12:32 Plt Count 235 10^3/cmm (130-400) 10/20/22 12:32 MPV 10.5 fL (7.4-10.4) H 10/20/22 12:32 Neut % (Auto) 72.9 % 10/20/22 12:32 Lymph % (Auto) 17.7 % 10/20/22 12:32 [place] % (Auto) 7.8 % 10/20/22 12:32 Eos % (Auto) 0.7 % 10/20/22 12:32 Baso % (Auto) 0.5 % 10/20/22 12:32 Neut # (Auto) 5.38 10^3/uL (1.8-7.7) 10/20/22 12:32 Lymph # (Auto) 1.3 10^3/uL (0.8-4.8) 10/20/22 12:32 [place] # (Auto) 0.6 10^3/uL (0.2-0.9) 10/20/22 12:32 Eos # (Auto) 0.1 10^3/uL (0.0-0.8) 10/20/22 12:32 Baso # (Auto) 0.0 10^3/uL (0.0-0.1) 10/20/22 12:32 Nucleated RBC % (auto) 0 % 10/20/22 12:32 Nucleated RBCs # 0.0 /100WBC 10/20/22 12:32 Sodium 143 mmol/L (136-145) 10/20/22 12:32 Potassium 4.1 mmol/L (3.5-5.1) 10/20/22 12:32 Chloride 105 mmol/L (98-107) 10/20/22 12:32 Carbon Dioxide 29 mmol/L (22-29) 10/20/22 12:32 Anion Gap 13.1 (5-19) 10/20/22 12:32 BUN 17 mg/dL (6-20) 10/20/22 12:32 Creatinine 0.7 mg/dL (0.7-1.2) 10/20/22 12:32 GFR Calculation 124.3 mL/min (90-130) 10/20/22 12:32 Glucose 120 mg/dL (65-115) H 10/20/22 12:32 Calculated Osmolality 299 mOsm/kg (285-295) H 10/20/22 12:32 Calcium 9.3 mg/dL (8.5-10.5) 10/20/22 12:32 Total Bilirubin 0.3 mg/dL (0.15-1.2) 10/20/22 12:32 AST 12 U/L (0-40) 10/20/22 12:32 ALT 11 U/L (0-41) 10/20/22 12:32 Alkaline Phosphatase 59 U/L (40-130) 10/20/22 12:32 Total Protein 6.8 g/dL (6.6-8.7) 10/20/22 12:32 Albumin 4.5 g/dL (3.5-5.2) 10/20/22 12:32 Globulin 2.3 g/dL (1.3-4.6) 10/20/22 12:32 Salicylates 2.9 mg/dL (3-10) L 10/20/22 12:32 Urine Opiates Screen Negative ng/mL (Negative) 10/20/22 12:52 Acetaminophen < 5.0 ug/mL (10-30) L 10/20/22 12:32 Ur Barbiturates Screen Negative ng/mL (Negative) 10/20/22 12:52 Ur Phencyclidine Scrn Negative ng/mL (Negative) 10/20/22 12:52 Ur Amphetamines Screen Negative ng/mL (Negative) 10/20/22 12:52 U Benzodiazepines Scrn Negative ng/mL (Negative) 10/20/22 12:52 Urine Cocaine Screen Negative ng/mL (Negative) 10/20/22 12:52 U Marijuana (THC) Screen Positive ng/mL (Negative) H 10/20/22 12:52 Ethyl Alcohol < 10 mg/dL (0-10) 10/20/22 12:32 Discharge Plan Discharge Patient Disposition: Admitted As Inpatient Admit Provider: Steven Rouse Clinical Impression: Suicidal ideation, Involuntary commitment Condition: Stable Coding Level of Care Code ED Baker Apprentice for Phil Charles
[2022-10-20 12:40] LABS: Basophils % 0.5 %; Eosinophils # 0.1 10^3/uL (0.0-0.8); Eosinophils % 0.7 %; Hemoglobin 14.8 g/dL (11.7-16.6); Lymphocytes # 1.3 10^3/uL (0.8-4.8); Lymphocytes % 17.7 %; Mean Corpuscular HGB Conc 30.8 g/dL (30.0-36.0); Mean Corpuscular Hemoglobin 30.7 pg (28.0-34.0); Mean Corpuscular Volume 99.6 fl (80-94); Mean Platelet Volume 10.5 fL (7.4-10.4); Monocytes # 0.6 10^3/uL (0.2-0.9); Monocytes % 7.8 %; Neutrophils # 5.38 10^3/uL (1.8-7.7); Neutrophils % 72.9 %; Nucleated Red Blood Cells % 0 %; Platelet Count 235 10^3/cmm (130-400); Red Blood Count 4.82 10^6/uL (4.1-5.3); Red Cell Distribution Width 12.5 % (12.1-15.1); White Blood Count 7.4 10^3/uL (4.0-10.0)
[2022-10-20 12:58] LABS: Alanine Aminotransferase 11 U/L (0-41); Albumin Level 4.5 g/dL (3.5-5.2); Alkaline Phosphatase 59 U/L (40-130); Anion Gap 13.1 (5-19); Aspartate Amino Transferase 12 U/L (0-40); Blood Urea Nitrogen 17 mg/dL (6-20); Calcium 9.3 mg/dL (8.5-10.5); Carbon Dioxide 29 mmol/L (22-29); Chloride 105 mmol/L (98-107); Globulin 2.3 g/dL (1.3-4.6); Glomerular Filtration Rate 124.3 mL/min (90-130); Glucose 120 mg/dL (65-115); Osmolality Calculated 299 mOsm/kg (285-295); Potassium 4.1 mmol/L (3.5-5.1); Salicylate 2.9 mg/dL (3-10); Sodium 143 mmol/L (136-145); Total Bilirubin 0.3 mg/dL (0.15-1.2); Total Protein 6.8 g/dL (6.6-8.7)
[2022-10-20 12:59] LABS: Acetaminophen < 5.0 ug/mL (10-30); Alcohol Level < 10 mg/dL (0-10)
--- NOTE | 2022-10-20 13:19 | PC.PHAR ---
pt states he takes care of his own medications-pt states he takes no rx medications-pt states he suffers with headaches and states he takes excedrin migraine tid not prn
--- NOTE | 2022-10-20 13:54 | PC.NURSE ---
96 hour rights read and reviewed with patient. Copy of rights given to patient. Patient verbalized understandings.
[2022-10-20 15:07] LABS: Amphetamines Screen Urine Negative (Negative); Barbiturates Screen Urine Negative (Negative); Benzodiazepines Screen Urine Negative (Negative); Cocaine Screen Urine Negative (Negative); Opiate Screen Urine Negative (Negative); PCP Screen Urine Negative (Negative); THC Screen Urine Positive (Negative)
[2022-10-20 17:45] VITALS: BP 147/91; PULSE 83; RESP 16; TEMP 36.8; O2SAT 98
[2022-10-20] MEDS: acetaminophen 325 mg Tablet 650 MG PO (18:25)
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
[2022-10-20 20:23] VITALS: BP 132/83; PULSE 80; RESP 16; TEMP 36.8; O2SAT 98
[2022-10-20] MEDS: trazodone 50 mg Tablet PO (20:23)
[2022-10-21 06:00] VITALS: BP 136/95; PULSE 76; RESP 18; TEMP 36.6; O2SAT 98
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
[2022-10-21] MEDS: acetaminophen 325 mg Tablet 650 MG PO ×2 (09:00→18:04)
--- NOTE | 2022-10-21 09:04 | PC.NURSE ---
PT REPORTS HEADACHE / TYLENOL WAS GIVEN ORDERED. NEW ORDER RECEIVED FOR IBUPROFEN 60 MG PO Q 6 HOURS PRN FOR MODERATE PAIN. EDUCATION PROVIDED AND VERBALIZED UNDERSTANDING.
[2022-10-21] MEDS: hyDROXYzine 25 mg Capsule 50 MG PO ×2 (10:04→18:04)
--- NOTE | 2022-10-21 10:04 | PC.NURSE ---
Patient reports not wanting to be alive. Patient reports depression and anxiety This nurse administered 50mg Vistaril to patinet.
[2022-10-21 14:00] VITALS: BP 150/64; PULSE 88; RESP 16; TEMP 36.6; O2SAT 99
--- NOTE | 2022-10-21 14:26 | PC.NURSE ---
During morning assessment, patient stated that he just wants to be bed. Patient stated that his depression is on another level . Patient denies any specific plan to commit suicide at this time, but stated that if he could, he would no longer be alive.
[2022-10-21] MEDS: fluoxetine 20 mg Capsule PO (20:13)
[2022-10-21 21:05] VITALS: BP 146/93; PULSE 83; RESP 16; TEMP 36.7; O2SAT 99
[2022-10-21] MEDS: trazodone 50 mg Tablet PO (21:18)
[2022-10-22 06:00] VITALS: BP 142/88; PULSE 68; RESP 17; TEMP 36.6; O2SAT 100
[2022-10-22] MEDS: hyDROXYzine 25 mg Capsule 50 MG PO ×2 (09:01→18:35)
[2022-10-22] MEDS: fluoxetine 20 mg Capsule PO (09:01)
--- NOTE | 2022-10-22 13:50 | P.NPUPN_ITS ---
Subjective NPU Subjective: Patient presented today reporting that he is still depressed but taking his medication as prescribed. He discussed still feeling despair and desiring to feel better. He reports attending groups and trying to work on himself. He denies any specific side effects to the medications. Mental Status Exam MSE Comments: This is a well-nourished well-developed white male, in hospital scrubs, with ad equate grooming and eye contact. No abnormal movements except for mild psychomotor retardation. Cooperative with exam in mild distress. Speech was slightly decreased rate and volume. Mood described as still depressed; affect congruent. And slightly subdued thought process, organized. Thought content: patient endorses suicidal ideation and denies homicidal ideation, there were no delusions reported or noted, patient reports that he hears things, and he sees shadows. Attention, concentration, and memory appeared intact, but none were formally tested. Alert and oriented times three. Insight and judgment are limited. Impulse control is impaired. Vitals/I&O/Wt Last Vital Signs Temp 97.8 F 10/22/22 06:00 Pulse 68 10/22/22 06:00 Resp 17 10/22/22 06:00 BP 142/88 10/22/22 06:00 Pulse Ox 100 10/22/22 06:00 O2 Del Method Room Air 10/22/22 06:00 Weight last 48 hrs Weight 63.503 kg Data NPU 10/20/22 12:32 10/20/22 12:32 A&P Assessment and plan (1) Suicidal ideation: (2) Left renal stone: (3) Left ureteral calculus: (4) Adjustment disorder with mixed disturbance of emotions and conduct: (5) Major depressive disorder, recurrent: Plan This is a 42-year-old, white male, with some history of depression and limited psychiatric interventions, who presents willing to a try medication for help with depression and anxiety. 1. Started Prozac 20 mg p.o. every morning. 2. Encourage individual, group, and milieu therapy. 3. Continue q-15-minute checks for safety. Involuntary Hold Information 96 Hour Hold: 96 Hour Involuntary Admission: Yes 96 Hour Hold Ending Date: 10/26/22 96 Hour Hold Ending Time: 12:55 Attestations NPU Medical Necessity Statement*: Inpatient hospitalization is medically necessary and the clinically appropriate intervention, at this time. We will monitor medications and make changes as indicated. Likely length of stay is three to five days. Coding Level of Care Code Acute Code for Chg Fwd Diagnoses Suicidal ideation R45.851 Left renal stone N20.0 Left ureteral calculus N20.1 Adjustment disorder with mixed disturbance of emotions and conduct F43.25 Major depressive disorder, recurrent F33.9
[2022-10-22 13:58] VITALS: BP 140/95; PULSE 82; RESP 16; TEMP 36.6; O2SAT 100
[2022-10-22 20:46] VITALS: BP 139/90; PULSE 88; RESP 17; TEMP 36.9; O2SAT 97
[2022-10-22] MEDS: trazodone 50 mg Tablet PO (21:14)
[2022-10-23 06:00] VITALS: BP 148/89; PULSE 80; RESP 16; TEMP 36.5; O2SAT 100
[2022-10-23] MEDS: fluoxetine 20 mg Capsule PO (08:50)
[2022-10-23] MEDS: hyDROXYzine 25 mg Capsule 50 MG PO (08:50)
[2022-10-23 14:00] VITALS: BP 143/91; PULSE 85; RESP 16; TEMP 36.8; O2SAT 94
--- NOTE | 2022-10-23 17:14 | P.NPUPN_ITS ---
Subjective NPU Subjective: Patient presented today reporting that he is feeling a lot better having had his younger sister come visit with him. He reports that she is encouraging him to discharge and come live with her where she can be helpful and supportive. He reports that he thought about what she had to say and he thinks that is a reasonable option for him. We discussed the risks, benefits and alternatives of him thinking on it and seeing if he still feels better tomorrow and he understood and agreed to proceed as is documented in this note. We agreed we would consider discharge in the morning. Mental Status Exam MSE Comments: This is a well-nourished well-developed white male, in hospital scrubs, with kevin quate grooming and eye contact. No abnormal movements except for mild psychomotor retardation. Cooperative with exam in mild distress. Speech was slightly decreased rate and volume. Mood described as better/more hopeful; affect congruent. Thought process, organized. Thought content: patient denies suicidal or homicidal ideation, there were no delusions reported or noted, he denied auditory or visual hallucinations. Attention, concentration, and memory appeared intact, but none were formally tested. Alert and oriented times three. Insight and judgment are limited, but improving. Impulse control is improving. Vitals/I&O/Wt Last Vital Signs Temp 98.3 F 10/23/22 20:40 Pulse 88 10/23/22 20:40 Resp 18 10/23/22 20:40 BP 142/89 10/23/22 20:40 Pulse Ox 98 10/23/22 20:40 O2 Del Method Room Air 10/23/22 20:40 Data NPU 10/20/22 12:32 10/20/22 12:32 A&P Assessment and plan (1) Suicidal ideation: (2) Left renal stone: (3) Left ureteral calculus: (4) Adjustment disorder with mixed disturbance of emotions and conduct: (5) Major depressive disorder, recurrent: Plan This is a 42-year-old, white male, with some history of depression and limited psychiatric interventions, who presents willing to a try medication for help with depression and anxiety. 1. Started Prozac 20 mg p.o. every morning. 2. Encourage individual, group, and milieu therapy. 3. Continue q-15-minute checks for safety. 4. We will work with the social work team and patient's sister tomorrow to see if discharge is reasonable. Involuntary Hold Information 96 Hour Hold: 96 Hour Involuntary Admission: Yes 96 Hour Hold Ending Date: 10/26/22 96 Hour Hold Ending Time: 12:55 Attestations NPU Medical Necessity Statement*: Inpatient hospitalization is medically necessary and the clinically appropriate intervention, at this time. We will monitor medications and make changes as jair cated. Likely length of stay is 1-3 days. Coding Level of Care Code Acute Code for Chg Fwd Diagnoses Suicidal ideation R45.851 Left renal stone N20.0 Left ureteral calculus N20.1 Adjustment disorder with mixed disturbance of emotions and conduct F43.25 Major depressive disorder, recurrent F33.9
[2022-10-23 20:40] VITALS: BP 142/89; PULSE 88; RESP 18; TEMP 36.8; O2SAT 98
[2022-10-23] MEDS: trazodone 50 mg Tablet PO (21:57)
[2022-10-24 06:00] VITALS: BP 123/82; PULSE 86; RESP 17; O2SAT 98
[2022-10-24] MEDS: fluoxetine 20 mg Capsule PO (08:18)
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
[2022-10-24 13:04] VITALS: BP 123/82; PULSE 86; RESP 17; O2SAT 98
== END 2022-10-24 18:30 | disposition home or self-care (01) | DRG 881 ==
LOC: ER 13:26 → NP 15:14
PROVIDERS: Admitting Provider Psychiatry & Neurology Psychiatry; Emergency Provider Physician Assistant; Visit Provider Psychiatry & Neurology Psychiatry
DX: F32.A Depression, unspecified (principal); R45.851 Suicidal ideations; F41.9 Anxiety disorder, unspecified; Z87.891 Personal history of nicotine dependence
CPT/HCPCS: 36415; 80053; 80306; 80307; 85025; 97150; 97165; 99238; 99285